=== PATIENT | male | born 1975 | race Caucasian/White ===

== ENCOUNTER 2020-08-08 17:42 | Emergency (ER) | payer MEDICAID ==
[~2020-08-08] VITALS: Ht 185.4 cm; Wt 90.7 kg
[2020-08-08] MEDS ORDERED: PERM60CR4 TP (18:05)
--- NOTE | 2020-08-08 18:06 | NUR ---
BIBS FROM HOME TO ER BED 12. AAXO4. NOT IN RESP DISTRESS. AMBULATORY. CAME IN FOR AN ABDOMINAL PAIN AND DIARRHEA SINCE 155 THIS AFTERNOON. PER PT, HE ATE [employer]KKIE DOUGH LAST NIGHT. PT IS ALSO NOTED W/ ELEVATED BP AND HR WHICH PT VERBALIZED THAT HE TOOK SPEED LAST NIGHT. URINE COLLECTED AND SENT TO LAB. AT BEDSIDE FOR EVAL.
--- NOTE | 2020-08-08 18:15 | NUR ---
Patient discharged to home in stable condition. Written and verbal after care instructions given. Patient verbalizes understanding of instruction. Pt ambulatory with a steady gait
--- NOTE | 2020-08-08 18:15 | NUR ---
HOMELESS WAIVER SIGNED BY THE PATIENT. MEAL WAS PROVIDED
[2020-08-08 18:21] VITALS: BP 169/102
== END 2020-08-08 18:21 | disposition home or self-care (01) ==
LOC: ER 17:47
DX: R19.7 Diarrhea, unspecified (principal); B86 Scabies; F19.10 Other psychoactive substance abuse, uncomplicated; R00.0 Tachycardia, unspecified; F17.200 Nicotine dependence, unspecified, uncomplicated; F10.10 Alcohol abuse, uncomplicated; Y90.9 Presence of alcohol in blood, level not specified; Z59.0 Homelessness; Z60.2 Problems related to living alone; Z79.899 Other long term (current) drug therapy